=== PATIENT | male | born 1985 | race Caucasian/White ===

== ENCOUNTER 2020-07-31 16:16 | Emergency (ER) | payer OTHER ==
[~2020-07-31] VITALS: Ht 182.9 cm; Wt 77.1 kg
[2020-07-31 16:19] VITALS: BP 114/85; Ht 182.9 cm; Wt 77.1 kg
== END 2020-07-31 17:06 | disposition home or self-care (01) ==
LOC: ED 16:16
DX: B34.9 Viral infection, unspecified (principal); Z20.828 Contact with and (suspected) exposure to other viral communicable diseases